=== PATIENT | female | born 1990 | race Caucasian/White ===

== ENCOUNTER 2016-12-18 00:08 | Emergency (ER) | payer OTHER, SELFPAY ==
[2016-12-18 00:20] VITALS: BP 125/82
[2016-12-18] MEDS ORDERED: LEXA1TAB PO (00:23)
[2016-12-18] MEDS ORDERED: LIDOCAINE 2% MDV 20 ML VIAL SC ONE (01:00)
[2016-12-18] MEDS ORDERED: AUGMENTIN 875 MG TAB PO ONE (01:00)
[2016-12-18] MEDS ORDERED: NORCO, ANEXSIA 5/325MG TABLET (HYDROcodone/ACETAMINOPHEN) PO ONE (01:00)
[2016-12-18] MEDS ORDERED: AUGM875T28 PO (01:28)
== END 2016-12-18 01:52 | disposition home or self-care (01) ==
LOC: M ED 00:08
DX: S01.411A Laceration without foreign body of right cheek and temporomandibular area, initial encounter (principal); W54.0XXA Bitten by dog, initial encounter; Y92.018 Other place in single-family (private) house as the place of occurrence of the external cause; Y93.89 Activity, other specified; Y99.8 Other external cause status; F41.9 Anxiety disorder, unspecified; Z79.899 Other long term (current) drug therapy; Z88.8 Allergy status to other drugs, medicaments and biological substances

== ENCOUNTER 2016-12-23 12:43 | Emergency (ER) | payer OTHER, SELFPAY ==
[~2016-12-23] VITALS: Ht 177.8 cm; Wt 79.5 kg
[~2016-12-23 12:43] MED LIST: AUGM875T28 PO; LEXA1TAB PO
[2016-12-23 12:44] VITALS: BP 116/71
== END 2016-12-23 14:30 | disposition home or self-care (01) ==
LOC: M ED 12:43
DX: Z48.00 Encounter for change or removal of nonsurgical wound dressing (principal)